=== PATIENT | female | born 1950 | race Caucasian/White ===

== ENCOUNTER 2016-10-14 08:26 | Inpatient (IN) | payer OTHER ==
[~2016-10-14] VITALS: Ht 165.1 cm; Wt 93.0 kg
[~2016-10-14 08:26] MED LIST: AMLODIPINE BESY10 MG PO; ATORVASTATIN CA40 MG PO; DAILY MULTIPLE1 EACH PO; DEXAMETHASONE4 MG PO; JANUMET 50/11 TABLET PO; JANUMET 50/51 TABLET PO; KEPPRA500 MG PO; LEVEMIR FL100 UNIT/1 SC; METOPROLOL SUC100 MG PO; VALSARTAN320 MG PO; VITAMIN D-32000 UNI2 PO
[2016-10-14 09:26] VITALS: BP 190/92
[2016-10-14 09:31] LABS: POINT-OF-CARE METER ID UU14174212
== END 2016-10-14 13:35 | disposition home or self-care (01) | DRG 55 ==
LOC: 2SOUTH 08:26
PROVIDERS: Neurological Surgery
DX: D49.6 Neoplasm of unspecified behavior of brain (principal); Z53.09 Procedure and treatment not carried out because of other contraindication
CPT/HCPCS: 77021; 82948; 86850; 86900; 86901; J0690